=== PATIENT | male | born 1945 | race Two or more races ===

== ENCOUNTER 2024-09-25 12:57 | Inpatient (IN) | payer OTHER ==
[~2024-09-25] VITALS: Ht 170.2 cm; Wt 152.9 kg
[2024-09-25] MEDS ORDERED: FARXIGA10 MG (13:05)
[2024-09-25] MEDS ORDERED: JANUVIA50 MG (13:05)
[2024-09-25] MEDS ORDERED: COZAAR50 MG (13:06)
[2024-09-25] MEDS ORDERED: ROSUVASTATIN CA40 MG (13:06)
[2024-09-25] MEDS ORDERED: GLIPIZIDE XL5 MG (13:06)
[2024-09-25] MEDS ORDERED: TOPROL XL25 M1 (13:06)
[2024-09-25] MEDS ORDERED: SYNTHROID50 MCG (13:07)
[2024-09-25] MEDS ORDERED: ABANEU-SL TABL1 EACH (13:07)
[2024-09-25] MEDS ORDERED: GLUMETZA500 MG (13:07)
[2024-09-25 15:54] LABS: HEMATOCRIT 42.9 % (39.0-48.0); MEAN CELL VOLUME 89.7 fL (80.0-100.00); MEAN CORPUSCULAR HEMOGLOBIN 29.3 pg (27.00-32.0); MEAN CORPUSCULAR HGB CONC 32.7 g/dl (32.0-36.0); PLATELET COUNT 216 K/uL (150-450); RED BLOOD COUNT 4.79 M/uL (4.00-6.00)
[2024-09-25 16:26] LABS: CALCIUM 9.6 mg/dL (8.5-10.1); CREATININE SERUM 1.7 mg/dL (0.70-1.30); GFR 39.28; POTASSIUM 5.45 mEq/L (3.5-5.1)
[2024-09-25] MEDS ORDERED: RINGERS SOLUTION,LACTATED 1,000 ML IV ONE (19:30)
[2024-09-25] MEDS ORDERED: SODIUM POLYSTYRENE SULFONATE 15 G/4 TSP TSP PO ONE (20:30)
[2024-09-25] MEDS ORDERED: ACETAMINOPHEN 500 MG GEL..CAP PO PRN (20:30)
[2024-09-25] MEDS ORDERED: DEXTROSE 50 % IN WATER 0.5 G/ML DISP.SYRIN IV PRN (20:45)
[2024-09-25] MEDS ORDERED: RINGERS SOLUTION,LACTATED 1,000 ML IV SCH (20:45)
[2024-09-25] MEDS ORDERED: INSULIN LISPRO 1,000 UNIT/10 ML UNITS SUBCUTANEO PRN (20:45)
[2024-09-25] MEDS ORDERED: SODIUM POLYSTYRENE SULFONATE 15 G/4 TSP TSP ONE (21:15)
[2024-09-25 21:32] VITALS: BP 160/85; O2SAT 97
[2024-09-25 22:37] VITALS: BP 156/87; O2SAT 100
[2024-09-26 01:23] VITALS: BP 152/79; O2SAT 98
[2024-09-26] MEDS ORDERED: LEVOTHYROXINE SODIUM 50 MCG TABLET PO SCH (06:00)
[2024-09-26 07:20] LABS: INR 1.15; PROTHROMBIN TIME 12.4 SECONDS (9.0-11.5)
[2024-09-26 07:45] LABS: ALBUMIN 3.2 gm/dL (3.4-5.0); BILIRUBIN TOTAL 0.47 mg/dL (0.3-1.2); CALCIUM 8.8 mg/dL (8.5-10.1); CREATININE SERUM 1.43 mg/dL (0.70-1.30); GFR 47.95; GLOBULINA 2.9 G/DL (2.4-3.5); POTASSIUM 4.57 mEq/L (3.5-5.1); TOTAL PROTEIN 6.1 gm/dL (6.4-8.2); TSH 1.07 uIU/mL (0.358-3.74)
[2024-09-26] MEDS ORDERED: FAMOTIDINE/PF 20 MG/2 ML VIAL ONE (08:22)
[2024-09-26] MEDS ORDERED: METOPROLOL SUCCINATE 25 MG TAB.SR.24H PO SCH (09:00)
[2024-09-26] MEDS ORDERED: AMLODIPINE BESYLATE 5 MG TABLET PO SCH (09:00)
[2024-09-26] MEDS ORDERED: FAMOTIDINE/PF 20 MG in 0.9 % SODIUM CHLORIDE 8 ML IV PUSH SCH ×2 (09:00→21:00)
[2024-09-26 09:13] VITALS: BP 125/66; BP 126/70; O2SAT 98
[2024-09-26] MEDS ORDERED: SODIUM CHLORIDE 0.45 % 1,000 ML IV SCH (17:15)
[2024-09-26 17:45] VITALS: BP 133/64; O2SAT 93
[2024-09-27 00:18] LABS: URINE APPEARANCE Clear; URINE BILIRRUBIN Negative (NEGATIVE); URINE BLOOD Negative; URINE COLOR Yellow; URINE KETONE Negative (NEGATIVE); URINE LEUKOCYTE Negative; URINE NITRATE Negative; URINE PROTEIN Trace (NEGATIVE); URINE UROBILINOGEN 0.2 E.U./dl
[2024-09-27 00:19] LABS: URINE BACTERIA 57.4 uL (0.0-1933); URINE RBC 2.2 uL (0.0-20.8)
[2024-09-27 00:34] LABS: URINE GLUCOSE >=1000 MG/DL (NEGATIVE)
[2024-09-27 00:56] VITALS: BP 135/68; O2SAT 97
[2024-09-27 07:00] LABS: CREATININE SERUM 1.67 mg/dL (0.70-1.30); GFR 40.09; POTASSIUM 4.59 mEq/L (3.5-5.1)
[2024-09-27 09:31] VITALS: BP 155/80; O2SAT 99
[2024-09-27] MEDS ORDERED: AMLODIPINE BESYL5 MG PO (11:37)
[2024-09-27] MEDS ORDERED: TOPROL XL25 M1 PO (11:37)
[2024-09-27] MEDS ORDERED: LEVOTHYROXINE50 MCG PO (11:37)
== END 2024-09-27 13:05 | disposition home or self-care (01) | DRG 684 ==
LOC: ER 13:00 → MEDI 20:57
PROVIDERS: General Practice; ADMIT Internal Medicine; ATTEND Internal Medicine
PROC: BT43ZZZ Ultrasonography of Bilateral Kidneys (ICD-10-PCS; principal; 2024-09-25)
DX: N17.9 Acute kidney failure, unspecified (principal); E87.5 Hyperkalemia; I10 Essential (primary) hypertension; R33.9 Retention of urine, unspecified